=== PATIENT | male | born 2000 | race Caucasian/White ===

== ENCOUNTER 2018-05-05 20:36 | Emergency (ER) | payer OTHER ==
[2018-05-05 20:41] VITALS: BP 140/87
--- NOTE | 2018-05-05 20:41 | EDPHY ---
H & P Stated Complaint: R foot inj, skateboarding, rolled ankle "out" Time Seen by Provider: 05/05/18 20:41 - Personal History Current Tetanus Diphtheria and Acellular Pertussis (TDAP): Yes - Medical/Surgical History Hx Asthma: No Hx Chronic Respiratory Disease: No Hx Diabetes: No Hx Cardiac Disease: No Hx Renal Disease: No Hx Cirrhosis: No Hx Alcoholism: No Hx HIV/AIDS: No Hx Splenectomy or Spleen Trauma: No Other PMH: Denies - Social History Smoking Status: Never smoked Constitutional: Initial Vital Signs Temperature (C) 36.8 C 05/05/18 20:38 Heart Rate 99 05/05/18 20:38 Respiratory Rate 16 05/05/18 20:38 Blood Pressure 140/87 H 05/05/18 20:38 O2 Sat (%) 98 05/05/18 20:38 O2 Delivery Mode Room Air Allergies/Adverse Reactions: No Known Allergies Allergy (Unverified 05/05/18 20:37) Home Medications: Medication Instructions Recorded Ibuprofen [Motrin] 800 mg PO Q8 #20 tab 05/05/18 Medical Decision Making - Diagnostics Imaging Results: Imaging Impressions Ankle X-Ray 05/05/18 20:44 Impression: 1. No acute osseous abnormality seen right ankle. 2. Soft tissue swelling laterally compatible with ankle sprain. Imaging: I viewed and interpreted images myself ED Course/Re-evaluation: CHIEF COMPLAINT: "I might have broke my ankle" HISTORY OF PRESENT ILLNESS: The patient is a 17 y/o male who complains of a right ankle injury secondary to falling while skateboarding this evening at 19: 30, about one hour ago. He was going down a short flight of stairs on his skateboard and lost his balance upon getting to the landing and proceeded to fall down the remaining 3 stairs. He landed on his right foot awkwardly and describes an inversion injury. He denies head strike, other injuries, weakness, paresthesias. He is normally healthy. REVIEW OF SYSTEMS: A comprehensive 10 system review of systems is otherwise negative aside from elements mentioned in the history of present illness and medical decision making. PHYSICAL EXAM: HR, BP, O2 Sat, RR. Temp noted General Appearance: Alert, well hydrated, appropriate, and non-toxic appearing. Head: Atraumatic without scalp tenderness or obvious injury Eyes: Pupils equal, round, reactive to light and accommodation, EOMI, no trauma , no injection. Nose: Atraumatic, no rhinorrhea, clear. Throat: Mucus membranes moist. Neck: Supple. Respiratory: No distress. Cardiovascular: Good capillary refill all extremities. Musculoskeletal: Right ankle: lateral swelling, mild medial tenderness along deltoid ligament. Otherwise normal active ROM of all extremities, atraumatic. Neurological: Alert, appropriate, and interactive. Nonfocal. Skin: No rashes, good turgor, no nodules on palpation. Past medical history: Denies Past surgical history: Denies Family history: Noncontributory Social history: Friend at bedside. DIAGNOSTICS/PROCEDURES/CRITICAL CARE TIME: Right ankle x-ray: no fracture DIFFERENTIAL DIAGNOSIS: The differential diagnosis for the patient's injury included but was not limited to fracture, ligamentous injury, contusion, muscular strain. MEDICAL DECISION MAKING: This is a healthy 17 yo male who presents with a right ankle inversion injury. He has swelling along the lateral aspect of his ankle and some tenderness along the deltoid ligament. X-ray shows soft tissue swelling without fracture. He will be discharged in ankle stirrup splint with NSAID directions and instructions to follow up with orthopedist. Return precautions discussed. He is comfortable with this plan. Departure - Departure Disposition: Home, Routine, Self-Care Clinical Impression: Right ankle sprain Qualifiers: Encounter type: initial encounter Involved ligament of ankle: deltoid ligament Qualified Code(s): S93.421A - Sprain of deltoid ligament of right ankle, initial encounter Condition: Good Instructions: Ankle Sprain (ED) Additional Instructions: 1. Wear stirrup splint until follow up. 2. Use 800mg ibuprofen every 8 hours for pain and inflammation. 3. Follow up with orthopedist in the next week. 4. Return to the ED for any worsening of condition. Referrals: Andrea Kilgore MD [Medical Doctor] - As per Instructions Prescriptions: Ibuprofen [Motrin] 800 mg PO Q8 #20 tab Report Scribed for: Jason Payan Report Scribed by: Maye Cabrera Date of Report: 05/05/18 Time of Report: 20:42
== END 2018-05-05 21:15 | disposition home or self-care (01) ==
DX: S93.421A Sprain of deltoid ligament of right ankle, initial encounter (principal); V00.138A Other skateboard accident, initial encounter; Y92.480 Sidewalk as the place of occurrence of the external cause; Y93.51 Activity, roller skating (inline) and skateboarding
CPT/HCPCS: L4350